=== PATIENT | male | born 1965 | race Caucasian/White ===

== ENCOUNTER 2023-01-21 13:28 | Inpatient (IN) | payer OTHER ==
[2023-01-21 14:34] VITALS: BMI 26.7
[2023-01-21] MEDS ORDERED: IBUPROFEN 600 MG TABLET (FP) PO PRN (19:59)
[2023-01-21] MEDS ORDERED: BENZONATATE 200 MG CAPSULE PO PRN (19:59)
[2023-01-21] MEDS ORDERED: IBUPROFEN 400 MG TABLET (FP) PO PRN (19:59)
[2023-01-21] MEDS ORDERED: NALOXONE HCL (KLOXXADO) 8 MG SPRAY NS PRN (19:59)
[2023-01-21] MEDS ORDERED: hydrOXYzine PAMOATE 25 MG CAPSULE (FP) PO PRN (19:59)
[2023-01-21] MEDS ORDERED: MAGNESIUM HYDROX 2400MG/30ML ORAL SUSPENSION 30 ML CUP PO PRN (19:59)
[2023-01-21] MEDS ORDERED: guaiFENesin 600 MG TABLET.ER (FP) PO PRN (19:59)
[2023-01-21] MEDS ORDERED: ONDANSETRON *ODT* 4 MG TABLET SL PRN (19:59)
[2023-01-21] MEDS ORDERED: MAG HYDROX/AL HYDROX/SIMETH 30 ML UNIT-DOSE CUP PO PRN (19:59)
[2023-01-21] MEDS ORDERED: DICYCLOMINE HCL 10 MG CAPSULE PO PRN (19:59)
[2023-01-21] MEDS ORDERED: LOPERAMIDE HCL 2 MG CAPSULE PO PRN (19:59)
[2023-01-21] MEDS ORDERED: POLYETHYLENE GLYCOL (HEALTHYLAX) 3350 17 GM PACKET PO PRN (19:59)
[2023-01-21] MEDS ORDERED: NALOXONE HCL 0.4 MG/ML VIAL IM PRN (19:59)
[2023-01-21] MEDS ORDERED: BISMUTH SUBSALICYLATE 524 MG/30 ML PO PRN (19:59)
[2023-01-21] MEDS ORDERED: ACETAMINOPHEN 325 MG TABLET (FP) PO PRN (19:59)
[2023-01-21] MEDS ORDERED: BENZOCAINE/MENTHOL (CHLORASEPTIC ) LOZENGE MM PRN (19:59)
[2023-01-21] MEDS ORDERED: LISINOPRIL 10 MG TABLET PO ONE (21:31)
[2023-01-21] MEDS: MELATONIN 5 MG TABLETS PO SCH (22:24)
[2023-01-21] MEDS: THIAMINE HCL 100 MG TABLET (FP) PO SCH (22:24)
[2023-01-22] MEDS: TAMSULOSIN HCL 0.4 MG CAP PO SCH (09:13)
[2023-01-22] MEDS ORDERED: diazePAM 5 MG TABLET PO PRN (09:20)
[2023-01-22] MEDS ORDERED: methaDONE HCL 10 MG TABLET (FOR DETOX USE ONLY) PO ONE (09:45)
[2023-01-22] MEDS ORDERED: PATIENT'S OWN MEDICATION (NON-FORMULARY) (Amlodipine Besylate/Benazepril [Amlodipine-Benaz PO SCH (10:00)
[2023-01-22] MEDS: LISINOPRIL 20 MG TABLET PO SCH (10:26)
[2023-01-22] MEDS: amLODIPine BESYLATE 5 MG TABLET (FP) PO SCH (10:26)
[2023-01-22] MEDS: diazePAM 5 MG TABLET PO SCH ×3 (10:27→22:22)
[2023-01-22] MEDS: PRENATAL VITAMINS W/ FOLIC ACID TABLET (FP) PO SCH (10:27)
[2023-01-22] MEDS: HYDROCHLOROTHIAZIDE 12.5 MG CAPSULE (FP) PO SCH (10:29)
[2023-01-22 12:21] LABS: POTASSIUM 4.9 mmol/L (3.5-5.1)
[2023-01-22 12:24] LABS: ALBUMIN 3.2 g/dl (3.4-5.0); BLOOD UREA NITROGEN 18.4 mg/dL (7-18)
[2023-01-22 12:26] LABS: HEMATOCRIT 34.6 % (35.4-49); HEMOGLOBIN 11.2 GM/dL (11.7-16.9); MCH 27.9 pg (25.7-33.7); MCHC 32.4 g/dl (32.0-35.9); MEAN CELL VOLUME 86.2 fl (80-96); MEAN PLT VOLUME 9.9 fl (7.5-11.1); PLATELET COUNT 142 10^3/uL (134-434); RBC 4.02 M/mm3 (4.00-5.60); RDW 13.3 % (11.9-15.9); WHITE BLOOD COUNT 5.7 K/mm3 (4.0-10.0)
[2023-01-22 12:27] LABS: CREATININE 1.4 mg/dL (0.55-1.3)
[2023-01-22 12:28] LABS: BILIRUBIN,TOTAL 0.3 mg/dL (0.2-1); TOT PROT 6.1 g/dl (6.4-8.2)
[2023-01-22 13:20] LABS: HIV INTERPRETATION NEGATIVE (NEGATIVE)
[2023-01-22] MEDS: THIAMINE HCL 100 MG TABLET (FP) PO SCH (22:22)
[2023-01-22] MEDS: MELATONIN 5 MG TABLETS PO SCH (22:22)
[2023-01-22] MEDS: cloNIDine HCL 0.1 MG TABLET PO PRN (22:22)
[2023-01-23] MEDS: diazePAM 5 MG TABLET PO SCH ×4 (05:21→22:47)
[2023-01-23] MEDS: TAMSULOSIN HCL 0.4 MG CAP PO SCH (08:57)
[2023-01-23] MEDS: PRENATAL VITAMINS W/ FOLIC ACID TABLET (FP) PO SCH (10:21)
[2023-01-23] MEDS: LISINOPRIL 20 MG TABLET PO SCH (10:21)
[2023-01-23] MEDS: HYDROCHLOROTHIAZIDE 12.5 MG CAPSULE (FP) PO SCH (10:21)
[2023-01-23] MEDS: amLODIPine BESYLATE 5 MG TABLET (FP) PO SCH (10:21)
[2023-01-23] MEDS: cloNIDine HCL 0.1 MG TABLET PO PRN (17:56)
[2023-01-23] MEDS: THIAMINE HCL 100 MG TABLET (FP) PO SCH (22:45)
[2023-01-23] MEDS: MELATONIN 5 MG TABLETS PO SCH (22:45)
[2023-01-24] MEDS: diazePAM 5 MG TABLET PO SCH ×3 (05:16→21:41)
[2023-01-24] MEDS: TAMSULOSIN HCL 0.4 MG CAP PO SCH (09:26)
[2023-01-24] MEDS ORDERED: methaDONE HCL 10 MG TABLET (FOR DETOX USE ONLY) PO ONE (10:00)
[2023-01-24] MEDS: amLODIPine BESYLATE 5 MG TABLET (FP) PO SCH (10:20)
[2023-01-24] MEDS: PRENATAL VITAMINS W/ FOLIC ACID TABLET (FP) PO SCH (10:20)
[2023-01-24] MEDS: LISINOPRIL 20 MG TABLET PO SCH (10:20)
[2023-01-24] MEDS: METHOCARBAMOL 500 MG TABLET PO PRN ×2 (10:21→21:40)
[2023-01-24] MEDS: HYDROCHLOROTHIAZIDE 12.5 MG CAPSULE (FP) PO SCH (10:22)
[2023-01-24] MEDS: MELATONIN 5 MG TABLETS PO SCH (21:39)
[2023-01-24] MEDS: THIAMINE HCL 100 MG TABLET (FP) PO SCH (21:40)
[2023-01-25] MEDS ORDERED: diazePAM 5 MG TABLET PO SCH (06:00)
[2023-01-25 06:27] VITALS: TEMP 98.2
[2023-01-25 09:17] VITALS: BP 161/85; PULSE 77; RESP 18
[2023-01-25] MEDS: TAMSULOSIN HCL 0.4 MG CAP PO SCH (09:18)
[2023-01-25] MEDS: HYDROCHLOROTHIAZIDE 12.5 MG CAPSULE (FP) PO SCH (09:20)
[2023-01-25] MEDS: amLODIPine BESYLATE 5 MG TABLET (FP) PO SCH (09:20)
[2023-01-25] MEDS: LISINOPRIL 20 MG TABLET PO SCH (09:20)
[2023-01-25] MEDS: PRENATAL VITAMINS W/ FOLIC ACID TABLET (FP) PO SCH (09:22)
[2023-01-25] MEDS ORDERED: amLODIPine BESYLATE 10 MG TABLET (FP) PO SCH (10:00)
[2023-01-26] MEDS ORDERED: diazePAM 5 MG TABLET PO ONE (06:00)
[2023-01-26] MEDS ORDERED: methaDONE HCL 10 MG TABLET (FOR DETOX USE ONLY) PO ONE (10:00)
== END 2023-01-25 11:21 | disposition left against medical advice (07) | DRG 770 ==
LOC: YASAS 13:28 → Y3N 20:06
PROVIDERS: ADMIT Allergy & Immunology; ATTEND Surgery
PROC: HZ2ZZZZ Detoxification Services for Substance Abuse Treatment (ICD-10-PCS; principal; 2023-01-21)
DX: F11.23 Opioid dependence with withdrawal (principal); F10.230 Alcohol dependence with withdrawal, uncomplicated; F14.20 Cocaine dependence, uncomplicated; F17.210 Nicotine dependence, cigarettes, uncomplicated; E78.5 Hyperlipidemia, unspecified; I10 Essential (primary) hypertension; N40.0 Benign prostatic hyperplasia without lower urinary tract symptoms
CPT/HCPCS: 36415; 80053; 85027; 86780; 87389; 87635

== ENCOUNTER 2024-10-31 09:20 | Inpatient (IN) | payer MEDICARE, OTHER ==
[2024-10-31 09:45] VITALS: BMI 25.3
[2024-10-31] MEDS ORDERED: POLYETHYLENE GLYCOL (HEALTHYLAX) 3350 17 GM PACKET PO PRN (10:16)
[2024-10-31] MEDS ORDERED: LOPERAMIDE HCL 2 MG CAPSULE PO PRN (10:16)
[2024-10-31] MEDS ORDERED: MAGNESIUM HYDROX 2400MG/30ML ORAL SUSPENSION 30 ML CUP PO PRN (10:16)
[2024-10-31] MEDS ORDERED: ACETAMINOPHEN 325 MG TABLET (FP) PO PRN (10:16)
[2024-10-31] MEDS ORDERED: IBUPROFEN 400 MG TABLET (FP) PO PRN (10:16)
[2024-10-31] MEDS ORDERED: BENZONATATE 200 MG CAPSULE PO PRN (10:16)
[2024-10-31] MEDS ORDERED: NALOXONE (NARCAN) HCL 4 MG/0.1 ML SPRAY NS PRN (10:16)
[2024-10-31] MEDS ORDERED: BENZOCAINE/MENTHOL (CHLORASEPTIC ) LOZENGE MM PRN (10:16)
[2024-10-31] MEDS ORDERED: BISMUTH SUBSALICYLATE 262 MG/15 ML BTL PO PRN (10:16)
[2024-10-31] MEDS ORDERED: DICYCLOMINE HCL 10 MG CAPSULE PO PRN (10:16)
[2024-10-31] MEDS ORDERED: ONDANSETRON *ODT* 4 MG TABLET SL PRN (10:16)
[2024-10-31] MEDS ORDERED: hydrOXYzine PAMOATE 25 MG CAPSULE (FP) PO PRN (10:16)
[2024-10-31] MEDS ORDERED: MAG HYDROX/AL HYDROX/SIMETH 30 ML UNIT-DOSE CUP PO PRN (10:16)
[2024-10-31] MEDS ORDERED: chlordiazePOXIDE HCL 25 MG CAPSULE PO PRN (10:16)
[2024-10-31] MEDS ORDERED: PRENATAL VITAMINS W/ FOLIC ACID TABLET (FP) PO ONE (11:52)
[2024-10-31] MEDS ORDERED: chlordiazePOXIDE HCL 25 MG CAPSULE ONE (11:52)
[2024-10-31] MEDS: chlordiazePOXIDE HCL 25 MG CAPSULE PO SCH (11:54)
[2024-10-31] MEDS: PRENATAL VITAMINS W/ FOLIC ACID TABLET (FP) PO SCH (11:55)
[2024-10-31] MEDS ORDERED: cloNIDine HCL 0.1 MG TABLET ONE (12:16)
[2024-10-31] MEDS: cloNIDine HCL 0.1 MG TABLET PO ONE (12:18)
[2024-10-31] MEDS: methaDONE HCL 10 MG TABLET PO ONE (13:08)
[2024-10-31] MEDS: cloNIDine HCL 0.1 MG TABLET PO SCH (13:26)
[2024-10-31] MEDS ORDERED: methaDONE HCL 10 MG TABLET PO PRN (14:07)
[2024-10-31] MEDS: THIAMINE 100 MG TABLET PO SCH (22:21)
[2024-10-31] MEDS: ATORVASTATIN CA 10 MG TABLET (FP) PO SCH (22:21)
[2024-10-31] MEDS: MELATONIN 5 MG TABLETS PO SCH (22:21)
[2024-10-31] MEDS: IBUPROFEN 600 MG TABLET (FP) PO PRN (22:21)
[2024-11-01] MEDS: TAMSULOSIN HCL 0.4 MG CAP PO SCH (07:37)
[2024-11-01] MEDS: LISINOPRIL 20 MG TABLET PO SCH (10:27)
[2024-11-01] MEDS: HYDROCHLOROTHIAZIDE 12.5 MG CAPSULE (FP) PO SCH (10:28)
[2024-11-01 10:44] LABS: HEMATOCRIT 39.4 % (40.1-51.0); HEMOGLOBIN 12.4 g/dL (13.7-17.5); MCHC 31.5 g/dl (32.3-36.5); MEAN PLT VOLUME 11.7 fl (9.4-12.4); PLATELET COUNT 158 x10^3/uL (163-337); RDW 12.8 % (12.2-16.1)
[2024-11-01 10:48] LABS: POTASSIUM 4.4 mmol/L (3.5-5.1)
[2024-11-01 10:51] LABS: CALCIUM 9.3 mg/dL (8.5-10.1)
[2024-11-01 10:52] LABS: ALBUMIN 3.2 g/dl (3.4-5.0); BLOOD UREA NITROGEN 16.3 mg/dL (7-18)
[2024-11-01 10:55] LABS: CREATININE 1.5 mg/dL (0.55-1.3)
[2024-11-01 10:56] LABS: BILIRUBIN,TOTAL 0.3 mg/dL (0.2-1)
[2024-11-01 10:57] LABS: TOT PROT 6.4 g/dl (6.4-8.2)
[2024-11-02] MEDS: chlordiazePOXIDE HCL 25 MG CAPSULE PO SCH (05:51)
[2024-11-02] MEDS: cloNIDine HCL 0.1 MG TABLET PO PRN (05:52)
[2024-11-02] MEDS: methaDONE 40 MG, methaDONE 10 MG PO ONE (10:17)
[2024-11-02] MEDS: METHOCARBAMOL 500 MG TABLET PO PRN (17:16)
[2024-11-02] MEDS: guaiFENesin 600 MG TABLET.ER (FP) PO PRN (17:16)
[2024-11-03] MEDS ORDERED: chlordiazePOXIDE HCL 10 MG CAPSULE PO PRN
[2024-11-03] MEDS: chlordiazePOXIDE HCL 10 MG CAPSULE PO SCH (05:55)
[2024-11-04] MEDS: chlordiazePOXIDE HCL 10 MG CAPSULE PO SCH (05:52)
[2024-11-04] MEDS: methaDONE 40 MG, methaDONE 20 MG PO ONE (10:00)
[2024-11-05] MEDS: chlordiazePOXIDE HCL 10 MG CAPSULE PO ONE (05:51)
[2024-11-06 06:34] VITALS: TEMP 97.6
[2024-11-06 09:49] VITALS: BP 163/87; PULSE 74; RESP 17
[2024-11-06] MEDS ORDERED: methaDONE HCL 40 MG DISPERSABLE TABLET PO ONE (10:00)
== END 2024-11-06 09:32 | disposition home or self-care (01) | DRG 773 ==
LOC: YASAS 09:20 → Y6N 11:24
PROVIDERS: ADMIT Allergy & Immunology; ATTEND Family Medicine Addiction Medicine
PROC: HZ2ZZZZ Detoxification Services for Substance Abuse Treatment (ICD-10-PCS; principal; 2024-10-31)
DX: F10.230 Alcohol dependence with withdrawal, uncomplicated (principal); F11.20 Opioid dependence, uncomplicated; F14.20 Cocaine dependence, uncomplicated; F17.210 Nicotine dependence, cigarettes, uncomplicated; F19.282 Other psychoactive substance dependence with psychoactive substance-induced sleep disorder; E78.5 Hyperlipidemia, unspecified; I10 Essential (primary) hypertension; M54.50 Low back pain, unspecified; G89.29 Other chronic pain; N40.0 Benign prostatic hyperplasia without lower urinary tract symptoms
CPT/HCPCS: 36415; 80053; 80307; 85027; 86780; 93005; 93010